=== PATIENT | male | born 1945 | race Caucasian/White ===

== ENCOUNTER 2017-09-03 14:22 | Emergency (ER) | payer MEDICARE ==
[2017-09-03] MEDS ORDERED: Sodium Chloride 0.9% 1,000 ML ONE (14:58)
[2017-09-03 15:48] LABS: Bilirubin Negative (Negative); Blood, Urine Large (Negative); Glucose, Urine (Dipstick) 100 mg/dL (Negative); Leukocyte Negative (Negative); Nitrite Negative (Negative); Protein, Urine (Dipstick) 100 mg/dL (Neg-Trace); Specific Gravity, Urine 1.025 (1.005-1.030); Urobilinogen 0.2 mg/dL (0.2-1.0); pH, Urine 5.5 (5.0-9.0)
[2017-09-03 15:52] LABS: ALT (SGPT) 20 U/L (8-55); AST (SGOT) 23 U/L (5-34); Albumin 3.5 g/dL (3.4-4.8); Alkaline Phosphatase 68 U/L (40-150); Anion Gap 12 mmol/L (10-20); BUN (Urea Nitrogen) 14 mg/dL (8.4-25.7); Bilirubin, Total 0.7 mg/dL (0.2-1.2); Calc. Creatinine Clearance 0 mL/min (70-130); Carbon Dioxide 22 mmol/L (23-31); Chloride 108 mmol/L (98-107); Estimated GFR-MDRD 75; Globulin 3.3 g/dL (2.4-3.5); Glucose 134 mg/dL (83-110); Lipase 32 U/L (8-78); Potassium 3.2 mmol/L (3.5-5.1); Protein, Total 6.8 g/dL (5.8-8.1); Sodium 139 mmol/L (136-145)
[2017-09-03] MEDS ORDERED: Potassium Chloride 20 MEQ TAB ONE (16:02)
[2017-09-03 16:07] LABS: Bacteria/HPF Rare-Few HPF (None Seen); Clarity Hazy (Clear); Crystals/HPF 2+ CA OXALATE HPF (Negative); Squamous Epithelial 0-3 HPF (0-3); WBC/HPF 0-3 HPF (0-3)
[2017-09-03 16:14] LABS: Band 1 % (5-11); Hemoglobin 14.7 g/dL (14.0-18.0); Lymphocytes 9 % (21-51); MDiff Complete? YES; Mean Corpuscular HGB CONC 33.1 g/dL (32.0-36.0); Mean Corpuscular Hemoglobin 30.3 pg (27.0-31.0); Mean Corpuscular Volume 91.6 fl (80.0-94.0); Mean Platelet Volume 6.5 fL (7.4-10.4); Monocytes 10 % (0-10); Neutrophil 77 % (42-75); Platelet Count 179 thou/uL (130-400); Reactive Lymphocytes 3 % (0-10); Red Blood Cell (RBC) Count 4.85 mill/uL (4.70-6.10); White Blood Cell (WBC) Count 10.6 thou/uL (4.8-10.8)
--- NOTE | 2017-09-03 18:10 | CT ---
CT OF THE ABDOMEN AND PELVIS 09/03/17 HISTORY: Diarrhea, weakness and dizziness. TECHNIQUE: Serial axial CT imaging is obtained at 5 mm intervals from lung bases through pubic symphysis without contrast. Coronal reformatted imaging obtained. FINDINGS: Lack of contrast limits assessment of the viscera, bowel, vascular structures and for lymphadenopathy . There is an incompletely imaged transvenous pacing device. Coronary arterial calcifications are noted . The imaged lung bases demonstrate no acute findings. No free intraperitoneal air or fluid is seen. Gallbladder is surgically absent. Liver, spleen, pancreas, and adrenal glands are unremarkable. Bilateral renal cysts are noted. No evidence for nephrolithiasis or obstructive uropathy is noted on the left. There is a nonobstructi ng stone in the lower pole of the right kidney measuring approximately 5 mm. No evidence for obstruct estuardo uropathy is noted on the right. Dystrophic calcifications are seen within the prostate gland. There is diffuse colonic wall thickening from the level of the mid ascending colon through the level of the sigmoid colon. This wall thickening is most prominent involving the descending colon where the re is pericolonic fat stranding as well. No evidence for bowel obstruction. Gastric postoperative дмитрий nges are noted. There is multilevel degenerative change involving the spine. There is no worrisome lytic or blastic b one lesion. Relatively mild scattered atherosclerotic calcification of distal abdominal aorta noted. IMPRESSION: There is diffuse colonic wall thickening, with most prominent wall thickening of the descending colon region with pericolonic fat stranding. These findings suggest a nonspecific diffuse colitis. No evid ence for free intraperitoneal air or bowel obstruction. POS: [facility]
== END 2017-09-03 17:38 | disposition home or self-care (01) ==
LOC: NAV ERS 14:22
DX: K52.9 Noninfective gastroenteritis and colitis, unspecified (principal); E87.6 Hypokalemia; E86.9 Volume depletion, unspecified; I25.10 Atherosclerotic heart disease of native coronary artery without angina pectoris; K21.9 Gastro-esophageal reflux disease without esophagitis; E78.5 Hyperlipidemia, unspecified; Z79.82 Long term (current) use of aspirin; Z79.899 Other long term (current) drug therapy
CPT/HCPCS: 74176; 80053; 81003; 81015; 83690; 85025; 96360; 96361; J7050

== ENCOUNTER 2018-11-07 11:04 | Observation (INO) | payer MEDICARE ==
[2018-11-07] MEDS ORDERED: Ondansetron PF 4 MG/2 ML Vial ONE (11:26)
[2018-11-07] MEDS ORDERED: Sodium Chloride 0.9% 1,000 ML ONE ×2 (11:26→12:17)
[2018-11-07 11:45] LABS: ALT (SGPT) 28 U/L (8-55); AST (SGOT) 40 U/L (5-34); Albumin 3.9 g/dL (3.4-4.8); Alkaline Phosphatase 67 U/L (40-150); Anion Gap 18 mmol/L (10-20); BUN (Urea Nitrogen) 18 mg/dL (8.4-25.7); Bilirubin, Total 0.7 mg/dL (0.2-1.2); Calc. Creatinine Clearance 0 mL/min (70-130); Calcium 9.6 mg/dL (7.8-10.44); Carbon Dioxide 20 mmol/L (23-31); Chloride 106 mmol/L (98-107); Estimated GFR-MDRD 53; Globulin 3.4 g/dL (2.4-3.5); Glucose 160 mg/dL (83-110); Potassium 3.5 mmol/L (3.5-5.1); Protein, Total 7.3 g/dL (5.8-8.1); Sodium 140 mmol/L (136-145)
[2018-11-07 12:02] LABS: Blast 2 % (0-0); CKMB 5.4 ng/mL (0-6.6); Hemoglobin 15.8 g/dL (14.0-18.0); Lymphocytes 20 % (21-51); MDiff Complete? YES; Mean Corpuscular HGB CONC 33.2 g/dL (32.0-36.0); Mean Corpuscular Hemoglobin 30.9 pg (27.0-31.0); Mean Corpuscular Volume 93.2 fL (78.0-98.0); Mean Platelet Volume 6.8 fL (7.4-10.4); Monocytes 7 % (0-10); Neutrophil 71 % (42-75); Platelet Count 198 thou/uL (130-400); Platelet Morphology Comment Appears Adequate; RBC Distribution Width 11.5 % (11.5-14.5); Red Blood Cell (RBC) Count 5.11 mill/uL (4.70-6.10); White Blood Cell (WBC) Count 8.1 thou/uL (4.8-10.8)
--- NOTE | 2018-11-07 12:13 | RAD ---
Frontal and lateral imaging of the left tibia/fibula: 11/07/2018 COMPARISON: None HISTORY: Fall, pain FINDINGS: 2 metallic densities overlie the region of the mid shaft left tibia. Notes from the perform ing technologist reports that these 2 metallic densities amado an area of laceration. There is a knee arthroplasty on the left. There is no displaced fracture or evidence of dislocation. IMPRESSION: No acute osseous abnormality. Please see above discussion.
[2018-11-07 12:38] LABS: Bilirubin Negative (Negative); Blood, Urine Small (Negative); Clarity Clear (Clear); Glucose, Urine (Dipstick) 100 mg/dL (Negative); Leukocyte Negative (Negative); Nitrite Negative (Negative); Protein, Urine (Dipstick) 30 mg/dL (Neg-Trace); Urobilinogen 0.2 mg/dL (Less than 2)
[2018-11-07 12:41] LABS: Squamous Epithelial 0-3 HPF (0-3); WBC/HPF None Seen HPF (0-3)
[2018-11-07 12:42] LABS: Bacteria/HPF Rare-Few HPF (None Seen)
[2018-11-07] MEDS ORDERED: Aspirin Chewable 81 MG TAB ONE (13:08)
[2018-11-07 14:26] VITALS: BMI 29.5
[2018-11-07 15:38] LABS: Lactic Acid 0.9 mmol/L (0.5-2.2)
[2018-11-07 15:48] LABS: Troponin I 0.032 ng/mL (< 0.028)
[2018-11-07] MEDS ORDERED: Ondansetron ODT 4 MG TAB PO PRN (15:57)
[2018-11-07] MEDS ORDERED: Senokot S 8.6-50 MG TAB PO PRN (15:57)
[2018-11-07] MEDS ORDERED: Loperamide HCl 2 MG CAP PO PRN (15:57)
[2018-11-07] MEDS ORDERED: Simvastatin 10 MG TAB PO SCH (21:00)
[2018-11-07] MEDS ORDERED: Alfuzosin 10 MG TABDR...ER PO SCH (21:00)
[2018-11-07] MEDS ORDERED: Aspirin Chewable 81 MG TAB PO SCH (21:00)
--- NOTE | 2018-11-07 22:49 | HP ---
HISTORY OF PRESENT ILLNESS: Mr. Cordero is a very pleasant 73-year-old white male, who was doing well and wants his party supply specialist on Saturday. He was supposed to go back on Saturday for an echocardiogram, but he got sick Saturday night. He started throwing up and vomiting and having some diarrhea. He got so sick and got so weak this morning that he came to the emergency room, was found to be dehydrated with increased creatinine. He did get 2 L of fluid in the ER, is now admitted to observation for a little bit more fluid to calm his stomach down. PAST MEDICAL HISTORY: Reveals the patient has the following; 1. Hypertension. 2. Hypercholesterolemia. 3. Arthritis. 4. Coronary artery disease. 5. Hyperlipidemia. 6. Thoracic and aortic aneurysm. 7. Sleep apnea. 8. Gastritis. 9. Hiatal hernia. 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 11. Diverticulosis. 12. History of myositis. 13. GERD. 14. Sleep apnea. PAST SURGICAL HISTORY: 1. Laparoscopic cholecystectomy with intraoperative cholangiogram on 12/28/2012. 2. Thoracic aneurysm repair, pacemaker placement at [facility] on 11/2015. 3. Heart valve repair. FAMILY HISTORY: Reveals the patient's father at age 94 with a heart attack. The patient's mother at age 57, suspected lung cancer and emphysema. The patient has brother in 2001 from a brain aneurysm. The patient has a son, he is alive and slightly obese and daughter is alive. The patient does not smoke. The patient does not drink. The patient is and lives with the spouse and 1 little dog. He does not drink coffee, Cokes, or tea daily. He does not exercise. He does not travel outside [facility]. ALLERGIES: REVEALS THE PATIENT IS ALLERGIC TO NAPROXEN, GIVES HIM STOMACH ULCERS. PRESENT MEDICATIONS: Reveals the patient is presently on the following medications; 1. Aspirin 325 mg daily. 2. Metoprolol 25 mg once a day. 3. Simvastatin 40 mg once a day. 4. Citalopram 20 mg daily. 5. Multivitamin. REVIEW OF SYSTEMS: CONSTITUTIONAL: Reveals the patient has not had fever, chills, but he has had some headaches and weakness and fatigue this morning. He has not injured his head. He has no visual changes or changes in his hearing. He denies any hearing loss. He has not had any problem with cough, cold, congestion, hemoptysis, change in sputum production. CARDIOVASCULAR LONG: He has not had PND, edema, ESPINAL, chest pain, orthopnea, or claudication. GI LONG: He has not had hematochezia or bowel habit changes. Denies nausea, vomiting, diarrhea, or constipation. LONG: Denies nocturia, urgency, frequency, or hematuria. MUSCULOSKELETAL LONG: Just feels weak, but he has no significant joint swelling or joint pain or stiffness. SKIN: He has an abrasion on his left lower leg, which his party supply specialist is watching and is supposed to watch it again on Saturday or . We did look at it, it does not look like it is infected. NEUROLOGIC: The patient had no syncopal spells, but was dizzy when he got up. He has no focal losses. The patient does not have any problems with anxiety, depressive disorder at this time. PHYSICAL EXAMINATION: GENERAL: This is a well-developed, well-nourished, very pleasant white male, in no apparent distress at this time. HEENT: Reveals normocephalic and nontraumatic cranium. Pupils are equally round and reactive. Extraocular movements are intact. Nose and throat are clear. Mucous membranes are slightly dry. NECK: Supple without masses, nodes, or bruits. CHEST: Clear to auscultation. No rales, no rhonchi, no wheezes are heard. No cough is noted. HEART: Reveals a regular rate and rhythm without murmurs, gallops, or rubs. ABDOMEN: Slightly obese, soft, nontender without organomegaly. Normal bowel sounds are noted in all 4 quadrants. No rebound or guarding is noted. The patient's pacemaker is palpable, left upper chest wall. GENITOURINARY: Deferred. EXTREMITIES: Reveal no clubbing, cyanosis, or edema. The patient does have an abrasion on his left lower cano. It does not look infected. ASSESSMENT: 1. Dehydration. 2. Slight bump in his troponin I. 3. Nausea with vomiting. 4. Lower leg contusion. 5. Generalized weakness. PLAN: 1. The patient was admitted to observation. 2. The patient will continue with IV fluids. 3. The patient will restart all of his medications. 4. Start the patient on clear liquids and slowly titrate as needed. Job ID: [id number]
[2018-11-07] MEDS: Sodium Chloride 0.9% 1,000 ML IV SCH (23:12)
[2018-11-08] MEDS: Sodium Chloride 0.9% 1,000 ML IV SCH ×2 (03:56→12:19)
[2018-11-08 05:40] LABS: Anion Gap 9 mmol/L (10-20); Globulin 2.6 g/dL (2.4-3.5)
[2018-11-08 05:46] LABS: ALT (SGPT) 24 U/L (8-55); AST (SGOT) 29 U/L (5-34); Alkaline Phosphatase 54 U/L (40-150); BUN (Urea Nitrogen) 15 mg/dL (8.4-25.7); Band 8 % (5-11); Bilirubin, Total 0.5 mg/dL (0.2-1.2); Calc. Creatinine Clearance 90 mL/min (70-130); Calcium 8.1 mg/dL (7.8-10.44); Carbon Dioxide 23 mmol/L (23-31); Chloride 111 mmol/L (98-107); Eosinophils 6 % (0-10); Estimated GFR-MDRD 77; Glucose 104 mg/dL (83-110); Hemoglobin 12.8 g/dL (14.0-18.0); Lymphocytes 26 % (21-51); MDiff Complete? YES; Mean Corpuscular HGB CONC 33.1 g/dL (32.0-36.0); Mean Corpuscular Hemoglobin 30.7 pg (27.0-31.0); Mean Platelet Volume 6.3 fL (7.4-10.4); Monocytes 6 % (0-10); Neutrophil 54 % (42-75); Platelet Count 156 thou/uL (130-400); Platelet Morphology Comment Appears Adequate; Potassium 3.4 mmol/L (3.5-5.1); Protein, Total 5.6 g/dL (5.8-8.1); RBC Distribution Width 11.9 % (11.5-14.5); RBC Morphology Normal; Red Blood Cell (RBC) Count 4.15 mill/uL (4.70-6.10); Sodium 140 mmol/L (136-145); White Blood Cell (WBC) Count 6.4 thou/uL (4.8-10.8)
[2018-11-08] MEDS ORDERED: Citalopram 20 MG TAB PO SCH (09:00)
[2018-11-08] MEDS ORDERED: Metoprolol Tartrate 50 MG TAB PO SCH (09:00)
[2018-11-08 19:51] VITALS: BP 106/58; TEMP 98.1
== END 2018-11-08 20:15 | disposition home or self-care (01) ==
LOC: NAV ERS 11:04 → NAV ACUTE 13:38
PROVIDERS: ADMIT Family Medicine; ATTEND Family Medicine
DX: E86.0 Dehydration (principal); R79.89 Other specified abnormal findings of blood chemistry; R11.2 Nausea with vomiting, unspecified; S80.12XA Contusion of left lower leg, initial encounter; R53.1 Weakness; I10 Essential (primary) hypertension; E78.00 Pure hypercholesterolemia, unspecified; M19.90 Unspecified osteoarthritis, unspecified site; I25.10 Atherosclerotic heart disease of native coronary artery without angina pectoris; E78.5 Hyperlipidemia, unspecified; G47.30 Sleep apnea, unspecified; K22.70 Barrett's esophagus without dysplasia; K21.9 Gastro-esophageal reflux disease without esophagitis; Z88.6 Allergy status to analgesic agent; Z79.82 Long term (current) use of aspirin; Z79.899 Other long term (current) drug therapy; X58.XXXA Exposure to other specified factors, initial encounter
CPT/HCPCS: 36415; 80053; 81003; 81015; 82553; 83605; 84484; 85025; 87070; 87205; 93005; 96361; 96374; G0378; J2405; J7050

== ENCOUNTER 2022-04-16 17:52 | Emergency (ER) | payer MEDICARE ==
[~2022-04-16 17:52] MED LIST: Iopamidol 370 76% 100 ML VIAL ONE
[2022-04-16 18:13] LABS: #Basophils 0.1 thou/uL (0.0-0.2); #Eosinphils 0.3 thou/uL (0.0-0.7); #Lymphocytes 2.5 thou/uL (1.20-3.40); #Monocytes 0.9 thou/uL (0.11-0.59); #Neutrophils 3.7 thou/uL (1.40-6.50); %Basophils 1.6 % (0.0-1.0); %Eosinophils 4.4 % (0.0-10.0); %Lymphocytes 33.1 % (21.0-51.0); %Monocytes 12.4 % (0.0-10.0); %Neutrophils 48.5 % (42.0-75.0); Hemoglobin 11.9 g/dL (14.0-18.0); Mean Corpuscular HGB CONC 31.6 g/dL (32.0-36.0); Mean Corpuscular Volume 94.8 fl (78.0-98.0); Platelet Count 243 10x3/uL (130-400); RBC Distribution Width 14.5 % (11.5-14.5); Red Blood Cell (RBC) Count 3.98 mill/uL (4.70-6.10); White Blood Cell (WBC) Count 7.6 10x3/uL (4.8-10.8)
[2022-04-16 18:20] LABS: INR-International Normal Ratio 1.3; Prothrombin Time 16.2 sec (12.0-14.7)
[2022-04-16 18:21] LABS: PTT 34.1 sec (22.9-36.1)
[2022-04-16 18:29] LABS: ALT (SGPT) 16 U/L (8-55); AST (SGOT) 16 U/L (5-34); Alkaline Phosphatase 74 U/L (40-110); Anion Gap 12 mmol/L (10-20); BUN (Urea Nitrogen) 24 mg/dL (8.4-25.7); Bilirubin, Total 0.9 mg/dL (0.2-1.2); Calc. Creatinine Clearance 0 mL/min (70-130); Calcium 9.1 mg/dL (7.8-10.44); Carbon Dioxide 24 mmol/L (23-31); Chloride 108 mmol/L (98-107); Estimated GFR 49; Globulin 2.8 g/dL (2.4-3.5); Glucose 84 mg/dL (83-110); Potassium 4.1 mmol/L (3.5-5.1); Protein, Total 6.8 g/dL (5.8-8.1); Sodium 140 mmol/L (136-145)
[2022-04-16 19:08] LABS: SARS-CoV-2 NAA Rapid Test Not Detected (NotDetected)
== END 2022-04-16 18:48 | disposition home or self-care (01) ==
LOC: NAV ERS 17:52
DX: F44.6 Conversion disorder with sensory symptom or deficit (principal); R47.81 Slurred speech; E78.00 Pure hypercholesterolemia, unspecified; K21.9 Gastro-esophageal reflux disease without esophagitis; I25.10 Atherosclerotic heart disease of native coronary artery without angina pectoris; Z20.822 Contact with and (suspected) exposure to COVID-19; Z79.01 Long term (current) use of anticoagulants
CPT/HCPCS: 36415; 36416; 70450; 70496; 70498; 80053; 84484; 85025; 85610; 85730; 93005; Q9967; U0002

== ENCOUNTER 2022-04-29 17:35 | Emergency (ER) | payer MEDICARE, OTHER ==
[2022-04-29 18:20] LABS: #Basophils 0.1 thou/uL (0.0-0.2); #Eosinphils 0.3 thou/uL (0.0-0.7); #Lymphocytes 2.4 thou/uL (1.20-3.40); #Monocytes 1.3 thou/uL (0.11-0.59); #Neutrophils 8.3 thou/uL (1.40-6.50); %Basophils 0.8 % (0.0-1.0); %Eosinophils 2.2 % (0.0-10.0); %Lymphocytes 19.4 % (21.0-51.0); %Monocytes 10.3 % (0.0-10.0); %Neutrophils 67.3 % (42.0-75.0); Hemoglobin 12.9 g/dL (14.0-18.0); Mean Corpuscular HGB CONC 32.5 g/dL (32.0-36.0); Mean Corpuscular Hemoglobin 30.5 pg (27.0-31.0); Mean Platelet Volume 6.4 fL (7.4-10.4); Platelet Count 243 10x3/uL (130-400); RBC Distribution Width 14.2 % (11.5-14.5); Red Blood Cell (RBC) Count 4.22 mill/uL (4.70-6.10); White Blood Cell (WBC) Count 12.3 10x3/uL (4.8-10.8)
[2022-04-29 18:23] LABS: INR-International Normal Ratio 1.3; Prothrombin Time 16.8 sec (12.0-14.7)
[2022-04-29 18:24] LABS: PTT 32.1 sec (22.9-36.1)
[2022-04-29] MEDS ORDERED: Sodium Chloride 0.9% 1,000 ML ONE (18:28)
[2022-04-29] MEDS ORDERED: HYDROmorphone 0.5 MG/0.5 ML SYRINGE ONE (18:28)
[2022-04-29] MEDS ORDERED: Ondansetron PF 4 MG/2 ML Vial ONE (18:28)
[2022-04-29 18:34] LABS: ALT (SGPT) 17 U/L (8-55); AST (SGOT) 19 U/L (5-34); Albumin 4.1 g/dL (3.4-4.8); Alkaline Phosphatase 76 U/L (40-110); Anion Gap 14 mmol/L (10-20); BUN (Urea Nitrogen) 28 mg/dL (8.4-25.7); Calc. Creatinine Clearance 0 mL/min (70-130); Calcium 9.4 mg/dL (7.8-10.44); Carbon Dioxide 22 mmol/L (23-31); Chloride 108 mmol/L (98-107); Estimated GFR 28; Glucose 131 mg/dL (83-110); Magnesium 1.9 mg/dL (1.6-2.6); Potassium 4.2 mmol/L (3.5-5.1); Protein, Total 7.1 g/dL (5.8-8.1); Sodium 140 mmol/L (136-145)
[2022-04-29] MEDS ORDERED: Tamsulosin HCl 0.4 MG CAP ONE (19:08)
[2022-04-29 20:05] LABS: Bilirubin Negative (Negative); Blood, Urine Large (Negative); Clarity Cloudy (Clear); Glucose, Urine (Dipstick) Negative (Negative); Ketone, Urine Trace mg/dL (Negative); Leukocyte Trace (Negative); Nitrite Negative (Negative); Protein, Urine (Dipstick) 30 mg/dL (Neg-Trace); Urobilinogen 0.2 mg/dL (Less than 2); pH, Urine 5.5 (5.0-9.0)
[2022-04-29 20:13] LABS: Bacteria/HPF 2+ HPF (None Seen); Mucous/LPF 2+ LPF (<2+); RBC/HPF Greater than 50 HPF (0-3); Squamous Epithelial None Seen HPF (0-3)
[2022-04-29] MEDS ORDERED: Cephalexin 250 MG CAP ONE (20:19)
== END 2022-04-29 20:38 | disposition home or self-care (01) ==
LOC: NAV ERS 17:35
DX: N13.2 Hydronephrosis with renal and ureteral calculous obstruction (principal); N18.9 Chronic kidney disease, unspecified; K21.9 Gastro-esophageal reflux disease without esophagitis; I25.10 Atherosclerotic heart disease of native coronary artery without angina pectoris; E78.00 Pure hypercholesterolemia, unspecified; Z79.899 Other long term (current) drug therapy
CPT/HCPCS: 36416; 70450; 74176; 80053; 81003; 81015; 83735; 84484; 85025; 85610; 85730; 93005; 96361; 96374; 96375; J1170; J2405; J7050

== ENCOUNTER 2023-02-09 16:04 | Emergency (ER) | payer MEDICARE, OTHER ==
[2023-02-09 16:18] LABS: #Basophils 0.1 thou/uL (0.0-0.2); #Eosinphils 0.3 thou/uL (0.0-0.7); #Lymphocytes 2.1 thou/uL (1.20-3.40); #Monocytes 0.6 thou/uL (0.11-0.59); #Neutrophils 5.1 thou/uL (1.40-6.50); %Eosinophils 3.9 % (0.0-10.0); %Lymphocytes 25.8 % (21.0-51.0); %Monocytes 7.6 % (0.0-10.0); %Neutrophils 61.6 % (42.0-75.0); Hemoglobin 13.6 g/dL (14.0-18.0); Mean Corpuscular HGB CONC 33.2 g/dL (32.0-36.0); Mean Corpuscular Hemoglobin 33.1 pg (27.0-31.0); Mean Corpuscular Volume 99.6 fl (78.0-98.0); Mean Platelet Volume 6.5 fL (7.4-10.4); Platelet Count 235 10x3/uL (130-400); RBC Distribution Width 12.4 % (11.5-14.5); Red Blood Cell (RBC) Count 4.12 mill/uL (4.70-6.10); White Blood Cell (WBC) Count 8.2 10x3/uL (4.8-10.8)
[2023-02-09 16:28] LABS: INR-International Normal Ratio 1.2; Prothrombin Time 15.9 sec (12.0-14.7)
[2023-02-09 16:29] LABS: PTT 28.8 sec (22.9-36.1)
[2023-02-09 16:36] LABS: ALT (SGPT) 17 U/L (8-55); AST (SGOT) 17 U/L (5-34); Albumin 3.9 g/dL (3.4-4.8); Alkaline Phosphatase 76 U/L (40-110); Anion Gap 16 mmol/L (10-20); BUN (Urea Nitrogen) 27 mg/dL (8.4-25.7); Bilirubin, Total 0.9 mg/dL (0.2-1.2); Calc. Creatinine Clearance 0 mL/min (70-130); Calcium 9.2 mg/dL (7.8-10.44); Carbon Dioxide 21 mmol/L (23-31); Chloride 108 mmol/L (98-107); Estimated GFR 41; Glucose 140 mg/dL (83-110); Potassium 4.2 mmol/L (3.5-5.1); Protein, Total 6.9 g/dL (5.8-8.1); Sodium 141 mmol/L (136-145)
[2023-02-09] MEDS ORDERED: Aspirin 325 MG TAB ONE (19:01)
== END 2023-02-09 19:35 | disposition short-term general hospital (02) ==
LOC: NAV ERS 16:04
DX: G45.9 Transient cerebral ischemic attack, unspecified (principal); R29.702 NIHSS score 2; I25.10 Atherosclerotic heart disease of native coronary artery without angina pectoris; E78.00 Pure hypercholesterolemia, unspecified; K21.9 Gastro-esophageal reflux disease without esophagitis; Z79.82 Long term (current) use of aspirin; Z79.899 Other long term (current) drug therapy
CPT/HCPCS: 36416; 70450; 70498; 80053; 84484; 85025; 85610; 85730; 93005; 94760

== ENCOUNTER 2025-03-03 16:57 | Emergency (ER) | payer MEDICARE, OTHER ==
[2025-03-03 17:52] LABS: #Basophils 0.2 thou/uL (0.0-0.2); #Eosinophils 0.1 thou/uL (0.0-0.7); #Lymphocytes 1.6 thou/uL (1.20-3.40); #Monocytes 1.0 thou/uL (0.11-0.59); #Neutrophils 9.6 thou/uL (1.40-6.50); %Basophils 1.6 % (0.0-1.0); %Eosinophils 0.7 % (0.0-10.0); %Lymphocytes 12.5 % (21.0-51.0); %Monocytes 7.8 % (0.0-10.0); %Neutrophils 77.4 % (42.0-75.0); Hematocrit 35.7 % (42.0-52.0); Hemoglobin 12.3 g/dL (14.0-18.0); Mean Corpuscular Hemoglobin 31.8 pg (27.0-31.0); Mean Corpuscular Volume 92.0 fl (78.0-98.0); Platelet Count 221 10x3/uL (130-400); Red Blood Cell (RBC) Count 3.88 mill/uL (4.70-6.10); White Blood Cell (WBC) Count 12.4 10x3/uL (4.8-10.8)
[2025-03-03 17:57] LABS: ALT (SGPT) 13 U/L (Less than 45); AST (SGOT) 36 U/L (11-34); Albumin 3.6 g/dL (3.1-4.5); Alkaline Phosphatase 68 U/L (40-110); Anion Gap 16 mmol/L (10-20); BUN (Urea Nitrogen) 27 mg/dL (8.4-25.7); Bilirubin, Total 2.0 mg/dL (0.3-1.2); Calc. Creatinine Clearance 0 mL/min (70-130); Calcium 9.3 mg/dL (7.8-10.44); Carbon Dioxide 20 mmol/L (23-31); Chloride 108 mmol/L (98-107); Globulin 3.2 g/dL (2.4-3.5); Glucose 128 mg/dL (83-110); Potassium 3.6 mmol/L (3.5-5.1); Sodium 140 mmol/L (136-145)
[2025-03-03 17:59] LABS: Troponin I 0.042 ng/mL (< 0.028)
== END 2025-03-03 19:05 | disposition home or self-care (01) ==
LOC: NAV ERS 16:57
DX: J20.9 Acute bronchitis, unspecified (principal); B34.9 Viral infection, unspecified; S50.811A Abrasion of right forearm, initial encounter; R79.1 Abnormal coagulation profile; I25.10 Atherosclerotic heart disease of native coronary artery without angina pectoris; E78.00 Pure hypercholesterolemia, unspecified; Z86.73 Personal history of transient ischemic attack (TIA), and cerebral infarction without residual deficits; Z79.899 Other long term (current) drug therapy; W19.XXXA Unspecified fall, initial encounter
CPT/HCPCS: 71046; 80053; 83605; 83880; 84484; 85025; 85379; 87428; 93005; 94640; 96374; J2919